=== PATIENT | male | born 1950 | race Caucasian/White ===

== ENCOUNTER 2023-04-30 21:11 | Emergency (ER) | payer OTHER ==
[~2023-04-30] VITALS: Ht 170.2 cm; Wt 81.6 kg
[2023-04-30 21:30] VITALS: BP 116/72; PULSE 86; RESP 17; TEMP 98; O2SAT 98
--- NOTE | 2023-04-30 21:38 | NUR ---
TO LOBBY A/W BED AMBULATORY
--- NOTE | 2023-04-30 22:41 | NUR ---
PT TO BED 03
--- NOTE | 2023-04-30 22:43 | NUR ---
RECEIVED IN BED 3 BEE STING AT 0830HOURS, ON HIS UPPER LIP, HEAD, BOTH HANDS WITH SWELLING, ITCHINESS , NO SOB. HE TOOK BENADRYL AT 0930 HOURS
[2023-04-30] MEDS ORDERED: PRED20TA5 PO (23:29)
[2023-04-30] MEDS ORDERED: HYD2.5O TP (23:29)
[2023-04-30] MEDS ORDERED: EPIN1KIT31 IM (23:29)
[2023-04-30] MEDS ORDERED: predniSONE 20 MG TAB PO ONE (23:30)
[2023-05-01 00:05] VITALS: BP 116/72; PULSE 86; RESP 17; TEMP 98; O2SAT 98
--- NOTE | 2023-05-01 00:05 | NUR ---
Patient discharged with v/s stable. Written and verbal after care instructions given and explained. Patient alert, oriented and verbalized understanding of instructions. Ambulatory with steady gait. All questions addressed prior to discharge. ID band removed. Patient advised to follow up with PMD. Rx of EPIPEN, PREDNISONE given. Patient educated on indication of medication including possible reaction and side effects. Opportunity to ask questions provided and answered.
== END 2023-05-01 00:05 | disposition home or self-care (01) ==
LOC: MED 21:11
DX: T63.441A Toxic effect of venom of bees, accidental (unintentional), initial encounter (principal); Z79.899 Other long term (current) drug therapy; Y92.89 Other specified places as the place of occurrence of the external cause
CPT/HCPCS: 99283; J7512